=== PATIENT | male | born 1995 | race Caucasian/White ===

== ENCOUNTER 2019-06-01 23:03 | Emergency (ER) | payer BC ==
[2019-06-01 23:51] VITALS: BP 146/69
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
== END 2019-06-02 02:10 | disposition home or self-care (01) ==
LOC: ER 23:03
DX: M25.512 Pain in left shoulder (principal); M25.522 Pain in left elbow; V18.4XXA Pedal cycle driver injured in noncollision transport accident in traffic accident, initial encounter; Y93.55 Activity, bike riding
CPT/HCPCS: 99283; L3650

== ENCOUNTER → 2019-06-14 | Outpatient (CLI) | payer BC ==
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
== END ==
LOC: RAD 18:05
PROVIDERS: ATTEND Specialist/Technologist Athletic Trainer
DX: M25.512 Pain in left shoulder (principal)